=== PATIENT | male | born 1960 | race African-American/Black ===

== ENCOUNTER 2018-11-06 14:45 | Emergency (ER) | payer BC ==
[~2018-11-06] VITALS: Ht 185.4 cm; Wt 115.0 kg
[2018-11-06 14:52] VITALS: BP 150/89
== END 2018-11-07 01:54 | disposition left against medical advice (07) ==
LOC: ER 15:48
DX: R07.89 Other chest pain (principal); M10.9 Gout, unspecified; F12.10 Cannabis abuse, uncomplicated
CPT/HCPCS: 93005; 99283